=== PATIENT | female | born 1965 | race African-American/Black ===

== ENCOUNTER 2018-10-01 19:03 | Emergency (ER) | payer MEDICARE, MEDICAID ==
[~2018-10-01] VITALS: Ht 167.6 cm; Wt 91.0 kg
[~2018-10-01 19:03] MED LIST: ALBU05; AMLO1POW2 MC; AMLO5TAB88 PO; AZIT250T; COZAAR; FLUT1DIS3 IH; LOSA25TA3 PO; LOSA50TA3 PO; NORVASC PO; TDUR2 PO; TEGRETOL PO; TIOT18CA3 IH; [UNRECOGNIZED DRUG - CODE] PO
[2018-10-01] MEDS ORDERED: IBUPROFEN 600MG TABLET PO ONE (21:30)
[2018-10-01] MEDS ORDERED: HYDROCORTISONE 1% CREAM 30GM TOP ONE (21:30)
[2018-10-01 23:01] VITALS: BP 122/80
== END 2018-10-01 23:01 | disposition home or self-care (01) ==
LOC: ER 19:03
DX: S93.691A Other sprain of right foot, initial encounter (principal); E11.9 Type 2 diabetes mellitus without complications; I10 Essential (primary) hypertension; G80.9 Cerebral palsy, unspecified; W57.XXXA Bitten or stung by nonvenomous insect and other nonvenomous arthropods, initial encounter; Y93.89 Activity, other specified; Y92.89 Other specified places as the place of occurrence of the external cause; Y99.8 Other external cause status; Z79.899 Other long term (current) drug therapy
CPT/HCPCS: 73620; 99283

== ENCOUNTER 2023-07-09 17:51 | Emergency (ER) | payer MEDICARE, MEDICAID ==
[~2023-07-09] VITALS: Ht 149.9 cm; Wt 106.0 kg
[~2023-07-09 17:51] MED LIST changes: +LOSA-412 PO; +LOSA-413 PO; -LOSA25TA3 PO; -LOSA50TA3 PO
[2023-07-09 18:08] VITALS: BP 207/110; TEMP 98.9; O2SAT 98
[2023-07-09] MEDS ORDERED: IPRATROPIUM BROMIDE (0.02%) 0.5MG/2.5ML NEB HHN STA (20:18)
[2023-07-09] MEDS ORDERED: ALBUTEROL (0.083%) 2.5MG/3ML NEB HHN STA (20:18)
[2023-07-09 21:00] VITALS: PULSE 112; RESP 20
[2023-07-09 21:07] LABS: BASOPHILS % 1.1 % (0.0-2.0); EOSINOPHILS % 3.7 % (0.0-5.0); HEMATOCRIT. 40.2 % (36.0-48.0); HEMOGLOBIN. 13.1 g/dL (12.0-16.0); MEAN CORPUSCULAR HEMOGLOBIN 30.2 pg (28.0-32.0); MEAN CORPUSCULAR HGB CONC 32.7 g/dL (31.0-37.0); MEAN CORPUSCULAR VOLUME 92.6 fL (81.0-99.0); MEAN PLATELET VOLUME 7.8 fl (7.4-10.4); MONOCYTES % 8.5 % (2.0-8.0); NEUTROPHILS % 47.7 % (40.0-76.0); PLATELET 288 x1000/uL (130-400); RED BLOOD CELL COUNT 4.34 mill/uL (4.2-5.4); RED CELL DISTRIBUTION WIDTH 12.9 % (11.6-14.6)
[2023-07-09 21:08] LABS: CHLORIDE 106 mEq/L (98-107); POTASSIUM 3.3 mEq/L (3.5-5.1); SODIUM 140 mEq/L (136-145)
[2023-07-09 21:09] LABS: CARBON DIOXIDE 26 mEq/L (21-32)
[2023-07-09 21:10] LABS: CALCIUM 8.7 mg/dL (8.7-10.4)
[2023-07-09 21:14] LABS: CREATININE 0.9 mg/dL (0.6-1.0); GLUCOSE 134 mg/dL (70-105); UREA NITROGEN BLOOD 8 mg/dL (9-23)
[2023-07-09 21:15] LABS: TROPONIN I HIGH SENSITIVITY 4 ng/L (3.0-34)
[2023-07-09 21:16] LABS: ALANINE AMINOTRANSFERASE < 7 IU/L (10-49); ASPARTATE AMINOTRANSFERASE 13 IU/L (<34)
[2023-07-09 21:17] LABS: BILIRUBIN TOTAL 0.2 mg/dL (0.1-1.0); PROTEIN TOTAL 7.3 g/dL (6.0-8.3)
[2023-07-10] MEDS: METHYLPREDNISOLONE SOD SUCC 125MG/2ML (ACT-O-VIAL) IV STA (00:01)
[2023-07-10] MEDS: METHYLPREDNISOLONE SOD SUCC 125MG/2ML (ACT-O-VIAL) IV NR (00:02)
[2023-07-10 00:03] LABS: TROPONIN I HIGH SENSITIVITY 4 ng/L (3.0-34)
[2023-07-10] MEDS: PREDNISONE 20MG TABLET PO NR (00:06)
[2023-07-10] MEDS ORDERED: P50 MT (00:49)
== END 2023-07-10 01:27 | disposition home or self-care (01) ==
LOC: ER 17:51
DX: J45.901 Unspecified asthma with (acute) exacerbation (principal); G40.909 Epilepsy, unspecified, not intractable, without status epilepticus; E11.9 Type 2 diabetes mellitus without complications; I10 Essential (primary) hypertension
CPT/HCPCS: 99284; 80053; 83880; 85025; 84484; 36415; 73560; 94640; J7512

== ENCOUNTER 2025-01-25 19:29 | Inpatient (IN) | payer MEDICARE, MEDICAID ==
[~2025-01-25] VITALS: Ht 152.4 cm; Wt 105.2 kg
[~2025-01-25 19:29] MED LIST changes: +P50 MT
[2025-01-25 20:00] VITALS: BP 132/72; PULSE 81; RESP 18; TEMP 36.6; O2SAT 95
[2025-01-25] MEDS ORDERED: MAGNESIUM/ALUMINUM HYDROXIDE/SIMETHICONE 30ML UDC PO PRN (21:30)
[2025-01-25] MEDS ORDERED: DOCUSATE SODIUM 100MG CAPSULE PO PRN (21:30)
[2025-01-25] MEDS ORDERED: IPRATROPIUM/ALBUTEROL 0.5-3(2.5)MG/3ML NEB HHN PRN (21:30)
[2025-01-25] MEDS ORDERED: ONDANSETRON HCL 4MG TABLET PO PRN (21:30)
[2025-01-25] MEDS ORDERED: POTASSIUM CHLORIDE 20MEQ TABLET SR PO PRN (21:30)
[2025-01-25] MEDS: ACETAMINOPHEN 325MG TABLET PO SCH (22:00)
[2025-01-25 22:08] VITALS: BP 132/72; PULSE 87; RESP 18; TEMP 36.6404
[2025-01-26] VITALS: BP 128/76; PULSE 76; RESP 18; TEMP 36.7; O2SAT 97
[2025-01-26 06:52] LABS: BASOPHILS % 0.7 % (0.0-2.0); EOSINOPHILS % 1.2 % (0.0-5.0); HEMATOCRIT. 34.0 % (36.0-48.0); HEMOGLOBIN. 11.1 g/dL (12.0-16.0); LYMPHOCYTES % 30.3 % (20.0-50.0); MEAN PLATELET VOLUME 7.4 fl (7.4-10.4); MONOCYTES % 10.9 % (2.0-8.0); NEUTROPHILS % 56.9 % (40.0-76.0); PLATELET 270 x1000/uL (130-400); RED BLOOD CELL COUNT 3.71 mill/uL (4.2-5.4); RED CELL DISTRIBUTION WIDTH 13.3 % (11.6-14.6)
[2025-01-26 07:04] LABS: CREATININE 0.6 mg/dL (0.6-1.0); UREA NITROGEN BLOOD 11 mg/dL (9-23)
[2025-01-26 07:05] LABS: ASPARTATE AMINOTRANSFERASE 9 IU/L (<34)
[2025-01-26 07:06] LABS: BILIRUBIN TOTAL 0.5 mg/dL (0.1-1.0); PROTEIN TOTAL 6.7 g/dL (6.0-8.3)
[2025-01-26] MEDS: CARBAMAZEPINE 200MG TABLET PO SCH ×2 (07:20→17:52)
[2025-01-26 08:00] VITALS: BP 132/65; PULSE 79; RESP 17; TEMP 36.8; O2SAT 97
[2025-01-26] MEDS: AMLODIPINE 5MG TABLET PO SCH (09:00)
[2025-01-26] MEDS: ENOXAPARIN 30MG/0.3ML SYR SUBCUT SCH (09:18)
[2025-01-26] MEDS: LOSARTAN 50 MG TABLET PO SCH (09:18)
[2025-01-26 20:00] VITALS: BP 142/68; PULSE 81; RESP 19; TEMP 36.7; O2SAT 97
[2025-01-26] MEDS: ACETAMINOPHEN 500MG TABLET PO SCH (21:12)
[2025-01-27 07:16] LABS: CREATININE 0.6 mg/dL (0.6-1.0); UREA NITROGEN BLOOD 13 mg/dL (9-23)
[2025-01-27 07:17] LABS: PROTEIN TOTAL 6.5 g/dL (6.0-8.3)
[2025-01-27 07:18] LABS: ASPARTATE AMINOTRANSFERASE 10 IU/L (<34); BILIRUBIN TOTAL 0.5 mg/dL (0.1-1.0); FOLIC ACID (FOLATE) SERUM 13.42 ng/mL (>5.38)
[2025-01-27 07:19] LABS: VITAMIN B12 SERUM 603 pg/mL (211-911)
[2025-01-27 12:00] VITALS: BP 140/66; PULSE 80; RESP 18; TEMP 36.7; O2SAT 98
[2025-01-27 14:27] LABS: CLARITY URINE CLOUDY (CLEAR); COLOR URINE DARK YELLOW (YELLOW); GLUCOSE URINE NEGATIVE (NEGATIVE); KETONES URINE NEGATIVE (NEGATIVE); NITRITE URINE NEGATIVE (NEGATIVE); OCCULT BLOOD URINE NEGATIVE (NEGATIVE); PH URINE 5.5 (4.5-8.0); PROTEIN URINE NEGATIVE (NEGATIVE); SPECIFIC GRAVITY URINE 1.028 (1.005-1.030)
[2025-01-27 14:28] LABS: LEUKOCYTE ESTERASE URINE 2+ (NEGATIVE); UROBILINOGEN URINE 1.0 E.U./dL (0.2-1.0)
[2025-01-27 15:15] LABS: RBC URINE 0-2 /hpf (0-2); SQUAMOUS EPITHELIAL CELL URINE 1+ /lpf (RARE/1+)
[2025-01-27 15:16] LABS: BACTERIA URINE 1+; YEAST URINE NONE SEEN
[2025-01-27] MEDS: APIXABAN 2.5 MG TABLET PO SCH (17:00)
[2025-01-27] MEDS: FERROUS SULFATE 325MG TABLET PO SCH (17:58)
[2025-01-27 19:10] LABS: BASOPHILS % 0.9 % (0.0-2.0); EOSINOPHILS % 1.5 % (0.0-5.0); HEMATOCRIT. 36.3 % (36.0-48.0); HEMOGLOBIN. 11.9 g/dL (12.0-16.0); LYMPHOCYTES % 30.9 % (20.0-50.0); MEAN PLATELET VOLUME 7.9 fl (7.4-10.4); MONOCYTES % 9.7 % (2.0-8.0); NEUTROPHILS % 57.0 % (40.0-76.0); PLATELET 326 x1000/uL (130-400); RED BLOOD CELL COUNT 3.97 mill/uL (4.2-5.4); RED CELL DISTRIBUTION WIDTH 13.0 % (11.6-14.6)
[2025-01-27 20:00] VITALS: BP 132/71; PULSE 75; RESP 18; TEMP 36.7; O2SAT 95
[2025-01-28] MEDS: ASCORBIC ACID 500 MG TABLET PO SCH (09:31)
[2025-01-28 12:00] VITALS: BP 137/76; PULSE 82; RESP 17; TEMP 36.4; O2SAT 99
[2025-01-28 20:00] VITALS: BP 129/60; PULSE 76; RESP 18; TEMP 36.8; O2SAT 96
[2025-01-28] MEDS: ERGOCALCIFEROL 50000UNITS CAPSULE PO SCH (21:09)
[2025-01-29 07:54] LABS: BASOPHILS % 0.6 % (0.0-2.0); EOSINOPHILS % 2.3 % (0.0-5.0); HEMATOCRIT. 34.3 % (36.0-48.0); HEMOGLOBIN. 11.4 g/dL (12.0-16.0); LYMPHOCYTES % 39.0 % (20.0-50.0); MEAN PLATELET VOLUME 7.4 fl (7.4-10.4); MONOCYTES % 9.2 % (2.0-8.0); NEUTROPHILS % 48.9 % (40.0-76.0); PLATELET 339 x1000/uL (130-400); RED BLOOD CELL COUNT 3.77 mill/uL (4.2-5.4); RED CELL DISTRIBUTION WIDTH 13.2 % (11.6-14.6)
[2025-01-29 10:12] LABS: CREATININE 0.7 mg/dL (0.6-1.0); UREA NITROGEN BLOOD 12 mg/dL (9-23)
[2025-01-29 12:00] VITALS: BP 125/67; PULSE 85; RESP 20; TEMP 36.7; O2SAT 98
[2025-01-29] MEDS: TRAMADOL 50MG TABLET PO PRN (14:34)
[2025-01-29] MEDS ORDERED: NALOXONE HCL 0.4MG/ML VIAL IV PRN (16:30)
[2025-01-29 20:00] VITALS: BP 135/65; PULSE 86; RESP 18; TEMP 36.8; O2SAT 96
[2025-01-30 08:00] VITALS: BP 138/82; PULSE 77; RESP 18; TEMP 36.4; O2SAT 97
[2025-01-30 12:00] VITALS: BP 110/59; PULSE 87; RESP 18; TEMP 36.4; O2SAT 97
[2025-01-30 20:00] VITALS: BP 123/61; PULSE 86; RESP 19; TEMP 36.6; O2SAT 95
[2025-01-30] MEDS: HYDROCODONE/ACETAMINOPHEN 5/325MG TABLET PO PRN (23:20)
[2025-01-31 20:00] VITALS: BP 142/60; PULSE 78; RESP 18; TEMP 36.4; O2SAT 96
[2025-02-01] MEDS: ACETAMINOPHEN 325MG TABLET PO PRN (01:03)
[2025-02-01 12:00] VITALS: BP 115/70; PULSE 84; RESP 20; TEMP 36.6; O2SAT 95
[2025-02-02 12:00] VITALS: BP 130/63; PULSE 68; RESP 20; TEMP 36.5; O2SAT 98
[2025-02-02 20:00] VITALS: BP 125/70; PULSE 88; RESP 20; TEMP 36.6; O2SAT 88
[2025-02-03 09:00] VITALS: BP 130/68; PULSE 85; RESP 18; TEMP 36.7; O2SAT 98
[2025-02-04 08:00] VITALS: BP 138/57; PULSE 67; RESP 18; TEMP 37; O2SAT 97
[2025-02-05 08:00] VITALS: BP 139/64; PULSE 60; RESP 18; TEMP 36.2; O2SAT 100
[2025-02-05 22:05] VITALS: BP 113/53; PULSE 81; RESP 19; TEMP 36.3; O2SAT 95
[2025-02-06] VITALS: BP 126/62; PULSE 73; RESP 18; TEMP 36.2; O2SAT 96
[2025-02-06 04:00] VITALS: BP 102/68; PULSE 67; RESP 17; TEMP 36.2; O2SAT 97
[2025-02-06 20:00] VITALS: BP 122/58; PULSE 92; RESP 18; TEMP 36.4; O2SAT 97
[2025-02-07 08:00] VITALS: BP 125/61; PULSE 70; RESP 17; TEMP 36.1; O2SAT 98
[2025-02-07 20:00] VITALS: BP 167/89; PULSE 84; RESP 19; TEMP 36.4; O2SAT 98
[2025-02-07] MEDS: CLONIDINE 0.1MG TABLET PO PRN (21:10)
[2025-02-08 08:00] VITALS: BP 125/78; PULSE 69; RESP 18; TEMP 36.4; O2SAT 98
[2025-02-08 13:35] VITALS: BP_SYST 124; BP_SYST 131; BP_DIAS 63; BP_DIAS 78; PULSE 69; PULSE 75; RESP 18; TEMP 36.4; TEMP 37.4; O2SAT 95; O2SAT 98
[2025-02-08 22:04] VITALS: BP 118/20; PULSE 81; RESP 18; TEMP 36.6; O2SAT 98
[2025-02-09 08:00] VITALS: BP 145/77; PULSE 71; RESP 19; TEMP 36.5; O2SAT 97
[2025-02-09 20:00] VITALS: BP 130/67; PULSE 74; RESP 18; TEMP 36.5; O2SAT 97
[2025-02-10 08:00] VITALS: BP_SYST 137; BP_SYST 97; BP_DIAS 60; BP_DIAS 66; PULSE 64; PULSE 67; RESP 17; RESP 18; TEMP 36.3; O2SAT 96; O2SAT 97
[2025-02-10 08:22] LABS: CREATININE 0.7 mg/dL (0.6-1.0); UREA NITROGEN BLOOD 11 mg/dL (9-23)
[2025-02-10 08:25] LABS: BASOPHILS % 0.8 % (0.0-2.0); EOSINOPHILS % 2.3 % (0.0-5.0); HEMATOCRIT. 36.1 % (36.0-48.0); HEMOGLOBIN. 11.8 g/dL (12.0-16.0); LYMPHOCYTES % 47.2 % (20.0-50.0); MEAN PLATELET VOLUME 7.4 fl (7.4-10.4); MONOCYTES % 8.7 % (2.0-8.0); NEUTROPHILS % 41.0 % (40.0-76.0); PLATELET 292 x1000/uL (130-400); RED BLOOD CELL COUNT 3.93 mill/uL (4.2-5.4); RED CELL DISTRIBUTION WIDTH 13.3 % (11.6-14.6)
[2025-02-10 20:00] VITALS: BP 126/66; PULSE 76; RESP 18; TEMP 36.4; O2SAT 97
[2025-02-11 08:00] VITALS: BP 130/88; PULSE 68; RESP 18; TEMP 36.8; O2SAT 97
[2025-02-11 10:45] VITALS: BP 143/78; PULSE 71; RESP 18; TEMP 98
== END 2025-02-11 16:20 | disposition home health service (06) | DRG 563 ==
PROVIDERS: ADMIT Physical Medicine & Rehabilitation Spinal Cord Injury Medicine; ATTEND Family Medicine Adult Medicine
DX: S82.851A Displaced trimalleolar fracture of right lower leg, initial encounter for closed fracture (principal); R13.10 Dysphagia, unspecified; D64.9 Anemia, unspecified; B96.20 Unspecified Escherichia coli [E. coli] as the cause of diseases classified elsewhere; E11.9 Type 2 diabetes mellitus without complications; E55.9 Vitamin D deficiency, unspecified; N39.0 Urinary tract infection, site not specified; F03.94 Unspecified dementia, unspecified severity, with anxiety; E66.01 Morbid (severe) obesity due to excess calories; G80.9 Cerebral palsy, unspecified; J45.20 Mild intermittent asthma, uncomplicated; I10 Essential (primary) hypertension; G40.909 Epilepsy, unspecified, not intractable, without status epilepticus; F84.0 Autistic disorder; Z68.42 Body mass index [BMI] 45.0-49.9, adult; Z79.84 Long term (current) use of oral hypoglycemic drugs; R53.81 Other malaise; R26.9 Unspecified abnormalities of gait and mobility; M85.80 Other specified disorders of bone density and structure, unspecified site; Z79.899 Other long term (current) drug therapy; W18.39XD Other fall on same level, subsequent encounter
CPT/HCPCS: 36415; 80048; 80053; 81003; 82140; 82306; 82607; 82728; 82746; 83036; 83540; 83550; 83735; 84134; 84145; 84443; 85025; 87077; 87186; 92523; 92610; 97110; 97116; 97162; 97166; 97530; 97535; 97542; J1650